=== PATIENT | male | born 1955 | race African-American/Black ===

== ENCOUNTER 2023-07-20 09:42 | Emergency (ER) | payer MEDICARE, MEDICAID ==
[~2023-07-20] VITALS: Ht 170.2 cm; Wt 77.6 kg
[2023-07-20] MEDS ORDERED: MIRT-90 PO (09:57)
[2023-07-20] MEDS ORDERED: CHLO25TA2 PO (09:57)
[2023-07-20] MEDS ORDERED: SPIR25TA6 PO (09:57)
[2023-07-20] MEDS ORDERED: ATOR40TA PO (09:57)
[2023-07-20] MEDS ORDERED: QUET25TA PO (09:57)
[2023-07-20] MEDS ORDERED: FINA5TAB11 PO (09:57)
[2023-07-20] MEDS ORDERED: LEVE500T9 PO (09:57)
[2023-07-20] MEDS ORDERED: AMLO-212 PO (09:57)
[2023-07-20] MEDS ORDERED: LEVETIRACETAM (250 MG) 250 MG TABLET PO ONE ×2 (09:59→10:00)
[2023-07-20] MEDS ORDERED: LEVETIRACETAM (500MG) 1,000 MG in IV NS 0.9% 90 ML IV SCH (10:30)
[2023-07-20 12:52] VITALS: BP 134/81; TEMP 98.1; O2SAT 98
[2023-07-21] MEDS ORDERED: METO25TA3 PO (17:18)
== END 2023-07-20 12:53 ==
LOC: ER 09:47
DX: R56.9 Unspecified convulsions (principal); I10 Essential (primary) hypertension; E11.9 Type 2 diabetes mellitus without complications
CPT/HCPCS: 99285; 96365; 70450; 93005; 82962; J7030; J1953

== ENCOUNTER 2023-07-21 13:41 | Inpatient (IN) | payer MEDICARE, MEDICAID ==
[~2023-07-21] VITALS: Ht 172.7 cm; Wt 66.2 kg
[~2023-07-21 13:41] MED LIST: AMLO-212 PO; ATOR40TA PO; CHLO25TA2 PO; FINA5TAB11 PO; LEVE500T9 PO; MIRT-90 PO; QUET25TA PO; SPIR25TA6 PO
[2023-07-21] MEDS ORDERED: LEVETIRACETAM (250 MG) 250 MG TABLET PO ONE ×2 (14:30→14:31)
[2023-07-21 14:35] LABS: BASOPHILS % (AUTO) 0.4 % (0.0-2.0); EOSINOPHILS # (AUTO) 0.1 K/uL (0.0-0.7); EOSINOPHILS % (AUTO) 1.2 % (0.0-6.0); HEMATOCRIT 46 % (39-51); HEMOGLOBIN 15.5 g/dL (13.5-17.5); LYMPHOCYTES # (AUTO) 1.2 K/uL (0.8-4.8); LYMPHOCYTES % (AUTO) 23.6 % (20.0-44.0); MEAN CORPUSCULAR HEMOGLOBIN 32 PG (26.0-33.0); MEAN CORPUSCULAR HGB CONC 34 g/dl (31.0-36.0); MEAN CORPUSCULAR VOLUME 96 fL (80-96); MONOCYTES # (AUTO) 0.5 K/uL (0.1-1.30); MONOCYTES % (AUTO) 8.8 % (2.0-12.0); NEUTROPHILS # (AUTO) 3.4 K/uL (1.8-8.9); PLATELET COUNT (AUTO) 288 K/uL (150-450); RED BLOOD CELL COUNT(AUTO) 4.82 MIL/uL (4.5-6.0); RED CELL DISTRIBUTION WIDTH 14.1 % (11.5-15.0); WHITE BLOOD COUNT (AUTO) 5.2 K/uL (4.3-11.0)
[2023-07-21 14:49] LABS: CARBON DIOXIDE 23 mmol/L (21-32); CHLORIDE 104 mmol/L (98-107); CREATININE 0.9 mg/dL (0.6-1.3); GLUCOSE 109 mg/dL (74-106); POTASSIUM 3.6 mmol/L (3.5-5.1); SODIUM SERUM 142 mmol/L (136-145); UREA NITROGEN, BLOOD 17 mg/dL (7-18)
[2023-07-21 14:55] LABS: ALANINE AMINOTRANSFERASE 34 U/L (12-78); ALBUMIN 4.7 g/dL (3.4-5.0); ALCOHOL, BLOOD < 3 mg/dL (0-10); ALKALINE PHOSPHATASE 123 U/L (46-116); ASPARTATE AMINOTRANSFERASE 26 U/L (15-37); BILIRUBIN,DIRECT 0.1 mg/dL (0.0-0.2); BILIRUBIN,TOTAL 0.5 mg/dL (0.2-1.0); SALICYLATE 6.9 mg/dL (2.8-20.0); TOTAL PROTEIN, SERUM 9.1 g/dL (6.4-8.2)
[2023-07-21 14:56] LABS: ACETAMINOPHEN 0 ug/ml (10-30)
[2023-07-21] MEDS: LEVETIRACETAM (500MG) 500 MG in IV NS 0.9% 100 ML IV SCH (15:05)
[2023-07-21] MEDS: OLANZAPINE 5 MG TABLET PO ONE (15:25)
[2023-07-21 16:06] LABS: APPEARANCE,URINE CLEAR (CLEAR); BILIRUBIN,URINE 1+ (NEGATIVE); BLOOD, URINE NEGATIVE Ery/uL (NEGATIVE); COLOR,URINE YELLOW (YELLOW); KETONES,URINE TRACE mg/dL (NEGATIVE); LEUKOCYTE ESTERASE ,URINE NEGATIVE (NEGATIVE); NITRITE, URINE NEGATIVE (NEGATIVE); PH,URINE 6.5 (5.0-8.0); PROTEIN,URINE TRACE mg/dl (NEGATIVE); UGLUCOSE NEGATIVE (NEGATIVE)
[2023-07-21 16:16] LABS: ADD URINE CULTURE NO; BACTERIA,URINE None seen /HPF (None Seen); RBC,URINE 0-2 /HPF (0-2); WBC,URINE 0-2 /HPF (0-3)
[2023-07-21 16:17] LABS: SQUAMOUS EPITHELIAL CELL,UR 0-2 /HPF (None Seen); URINE AMORPHOUS URATE Few /HPF (None Seen)
[2023-07-21 16:23] LABS: AMPHETAMINE, URINE NEGATIVE (NEGATIVE); BARBITURATE, URINE NEGATIVE (NEGATIVE); BENZODIAZEPINE, URINE NEGATIVE (NEGATIVE); CANNABINOID, URINE NEGATIVE (NEGATIVE); COCCAINE, URINE NEGATIVE (NEGATIVE); OPIATE, URINE NEGATIVE (NEGATIVE); PHENCYCLIDINE SCREEN,URINE NEGATIVE (NEGATIVE)
[2023-07-21] MEDS ORDERED: METO25TA3 PO (17:18)
[2023-07-21] MEDS ORDERED: ACETAMINOPHEN 325 MG TABLET PO PRN (20:00)
[2023-07-21] MEDS ORDERED: ENOXAPARIN SODIUM 40 MG/0.4 ML DISP.SYRIN SQ SCH (20:00)
[2023-07-21] MEDS ORDERED: ONDANSETRON HCL/PF 4 MG/2 ML VIAL IVP PRN (20:00)
[2023-07-21 20:48] VITALS: BP 122/78; TEMP 98.2; O2SAT 96
[2023-07-21 21:00] VITALS: BP 122/88; TEMP 98.2; O2SAT 96
[2023-07-21] MEDS: ENOXAPARIN SODIUM 40 MG/0.4 ML DISP.SYRIN SQ SCH (21:00)
[2023-07-21] MEDS: IV NS 0.9% 1,000 ML IV PRN (21:44)
[2023-07-21] MEDS: LEVETIRACETAM (500MG) 1,000 MG in IV NS 0.9% 90 ML IV SCH (21:44)
[2023-07-21] MEDS: ATORVASTATIN 40 MG TABLET PO SCH (21:46)
[2023-07-22 08:00] VITALS: BP 145/77; TEMP 98.1; O2SAT 96
[2023-07-22] MEDS: SPIRONOLACTONE 25 MG TABLET PO SCH (09:00)
[2023-07-22] MEDS: HYDROCHLOROTHIAZIDE 25 MG TABLET PO SCH (09:00)
[2023-07-22] MEDS: METOPROLOL SUCCINATE 25 MG TAB.SR.24H PO SCH (09:00)
[2023-07-22] MEDS: FINASTERIDE (5 MG) 5 MG TABLET PO SCH (09:00)
[2023-07-22] MEDS: AMLODIPINE BESYLATE 5 MG TABLET PO SCH (09:00)
[2023-07-22 16:04] VITALS: BP 155/85; TEMP 97.9; O2SAT 98
[2023-07-22 20:00] VITALS: BP 113/68; TEMP 98.8; O2SAT 95
[2023-07-22 21:03] VITALS: BP 113/68; TEMP 98.8; O2SAT 95
[2023-07-22] MEDS: MIRTAZAPINE 15 MG TABLET PO SCH (21:10)
[2023-07-22] MEDS: QUETIAPINE FUMARATE 25 MG TABLET PO SCH (21:11)
[2023-07-23] VITALS: BP 132/71; O2SAT 95
[2023-07-23 04:00] VITALS: BP 148/75; TEMP 98.2; O2SAT 98
[2023-07-23 04:18] VITALS: BP 148/75; TEMP 98.2; O2SAT 98
[2023-07-23 08:00] VITALS: BP 137/75; TEMP 99; O2SAT 99
[2023-07-23 16:18] VITALS: BP 148/93; TEMP 98.2; O2SAT 94
== END 2023-07-23 20:30 | DRG 101 ==
LOC: ER 13:59 → TELE 20:29
PROVIDERS: ADMIT Nurse Practitioner Acute Care; ATTEND Internal Medicine
DX: G40.909 Epilepsy, unspecified, not intractable, without status epilepticus (principal); E11.9 Type 2 diabetes mellitus without complications; I10 Essential (primary) hypertension; F39 Unspecified mood [affective] disorder; F32.9 Major depressive disorder, single episode, unspecified; Z79.899 Other long term (current) drug therapy; Z87.891 Personal history of nicotine dependence; E78.5 Hyperlipidemia, unspecified; Z91.199 Patient's noncompliance with other medical treatment and regimen due to unspecified reason; Z98.890 Other specified postprocedural states; Z20.822 Contact with and (suspected) exposure to COVID-19
CPT/HCPCS: 36415; 80048-TC; 80076-TC; 81001; 82962-TC; 85025-TC; 97110-TC; 97530-TC; A4223; G0378; G0480; J1650; J1953; J7030